=== PATIENT | female | born 1960 | race Caucasian/White ===

== ENCOUNTER 2018-11-14 16:54 | Inpatient (IN) | payer OTHER ==
[~2018-11-14] VITALS: Ht 157.5 cm; Wt 50.3 kg
--- NOTE | 2018-11-14 17:06 | NUR ---
PT BIBSELF FOR L SIDED NUMBNESS/WEAKNESS; PT AAOX4, PT ON MONITOR, VSS, NAD NOTED, PENDING MD CAMPO
--- NOTE | 2018-11-14 17:10 | NUR ---
CODE STROKE CALLED
--- NOTE | 2018-11-14 17:11 | NUR ---
PT TO CT
--- NOTE | 2018-11-14 17:15 | NUR ---
CALLED TELESTROKE AT [phone] ALANA WILL CALL US BACK WITH NEUROLOGIST
[2018-11-14] MEDS ORDERED: IOHEXOL-350 100 ML VIAL IV ONE (17:16)
[2018-11-14] MEDS ORDERED: IV NS 0.9% 250 ML IV ONE (17:16)
[2018-11-14] MEDS ORDERED: CT SWABBABLE VALVE TRANS SET 1 EA INFUS.SET MC ONE (17:16)
[2018-11-14 17:25] LABS: BASOPHILS # (AUTO) 0.1 /CMM (0.0-0.2); BASOPHILS % (AUTO) 1.5 % (0.0-2.0); EOSINOPHILS % (AUTO) 1.8 % (0.0-6.0); HEMATOCRIT 29 % (33-45); HEMOGLOBIN 9.6 g/dL (11.5-14.8); LYMPHOCYTES # (AUTO) 1.9 /CMM (0.8-4.8); LYMPHOCYTES % (AUTO) 43.6 % (20.0-44.0); MEAN CORPUSCULAR HGB CONC 33 g/dl (31.0-36.0); MEAN CORPUSCULAR VOLUME 90 fL (82-100); MONOCYTES # (AUTO) 0.4 /CMM (0.1-1.30); MONOCYTES % (AUTO) 9.7 % (2.0-12.0); NEUTROPHILS # (AUTO) 1.9 /CMM (1.8-8.9); NEUTROPHILS % (AUTO) 43.4 % (43.0-81.0); PLATELET COUNT (AUTO) 330 /CMM (150-450); RED BLOOD CELL COUNT(AUTO) 3.25 MIL/uL (4.0-5.2); WHITE BLOOD COUNT (AUTO) 4.3 K/uL (4.3-11.0)
[2018-11-14 17:33] LABS: CALCIUM, SERUM 8.9 mg/dL (8.5-10.1); CARBON DIOXIDE 25 mmol/L (21-32); CHLORIDE 103 mmol/L (98-107); CREATININE 0.9 mg/dL (0.6-1.3); GLUCOSE 96 mg/dL (74-106); POTASSIUM 4.4 mmol/L (3.5-5.1); SODIUM SERUM 134 mmol/L (136-145); UREA NITROGEN, BLOOD 19 mg/dL (7-18)
[2018-11-14 17:40] LABS: ALANINE AMINOTRANSFERASE 23 U/L (12-78); ALBUMIN 3.3 g/dL (3.4-5.0); ALKALINE PHOSPHATASE 110 U/L (46-116); ASPARTATE AMINOTRANSFERASE 14 U/L (15-37); BILIRUBIN,TOTAL 0.2 mg/dL (0.2-1.0); TOTAL PROTEIN, SERUM 6.8 g/dL (6.4-8.2)
[2018-11-14] MEDS ORDERED: ONDANSETRON HCL/PF 4 MG/2 ML VIAL ONE (17:58)
[2018-11-14] MEDS ORDERED: MORPHINE SULFATE INJ 4 MG/ML DISP.SYRIN ONE ×2 (17:58→20:28)
[2018-11-14] MEDS ORDERED: MORPHINE SULFATE INJ 10 MG/ML DISP.SYRIN IV ONE (18:00)
[2018-11-14] MEDS ORDERED: ONDANSETRON HCL/PF - ER 4 MG/2 ML VIAL IV ONE (18:00)
[2018-11-14 18:06] LABS: CHOLESTEROL 213 mg/dL (<200); HDL CHOLESTEROL 74 mg/dL (40-60); LDL 128 mg/dL (0-99); TRIGLYCERIDES 109 mg/dL (30-150)
[2018-11-14] MEDS ORDERED: ASPIRIN 325 MG TABLET PO ONE (19:00)
[2018-11-14] MEDS ORDERED: POTA20TA83 PO (20:27)
[2018-11-14] MEDS ORDERED: FURO20TA4 PO (20:27)
[2018-11-14] MEDS ORDERED: ATOR80TA PO (20:27)
[2018-11-14] MEDS ORDERED: LISI-603 PO (20:27)
[2018-11-14] MEDS ORDERED: MORPHINE SULFATE INJ 4 MG/ML DISP.SYRIN IV PRN (20:30)
--- NOTE | 2018-11-14 20:38 | NUR ---
MORPHINE 4MG IVP GIVEN AT 2030 L HAND 22G. UNABLE TO ADMINISTER THROUGH EMAR.
--- NOTE | 2018-11-14 20:39 | NUR ---
REPORT GIVEN TO DARBY SOOD FOR [facility]; PT WILL BE TRANSPORTED TO 3RD FLOOR VIA [facility] PROTOCOL
[2018-11-14 21:00] VITALS: BP 105/64
[2018-11-14] MEDS ORDERED: INSULIN REGULAR, HUMAN 100 UNIT/ML 3 ML VIAL SQ PRN (21:00)
[2018-11-14] MEDS ORDERED: DEXTROSE 50%-WATER 50 ML DISP.SYRIN IV PRN (21:00)
--- NOTE | 2018-11-14 21:00 | NUR ---
SPORTS MANAGEMENT PROFESSOR NOTE: RECEIVED PATIENT FROM ER, NO ACUTE DISTRESS NOTED. BREATHING EVEN AND UNLABORED, NO SOB NOTED. IV TO LEFT HAND IN PLACE. SWELLING TO RIGHT HAND NOTED, TO KEEP WITH ICE AND ELEVATED. STROKE ASSESSMENT COMPLETED. ORIENTED PATIENT TO ROOM AND USE OF CALL LIGHT. TELE READING SR 75. BED LOCKED AND IN LOWEST POSITION, CALL LIGHT IN REACH, WILL CONTINUE TO MONITOR.
--- NOTE | 2018-11-14 21:15 | NUR ---
BLUNGER NOTE: PATIENT WITHOUT ADMIT ORDER AND HOME MEDICATIONS TO BE RECONCILED. CONTACTED TRAVEL COTA MD AND GOT ORDER FOR ADMIT ORDER TO TELE, AND TO CONTINUE ALL HOME MEDICATIONS. ALSO CLARIFIED BLOOD SUGAR CHECK FREQUENCY AND NEED FOR SLIDING SCALE. RECEIVE ORDERS FOR ACHS BLOOD SUGAR CHECK WITH MILD SLIDING SCALE. ORDERS NOTED AND CARRIED OUT.
[2018-11-14] MEDS: ATORVASTATIN 40 MG TABLET PO SCH (21:41)
[2018-11-14] MEDS: BLOOD SUGAR DIAGNOSTIC 1 EACH STRIP IN SCH (21:41)
[2018-11-14] MEDS: FUROSEMIDE 20 MG TABLET PO SCH (21:41)
[2018-11-14] MEDS ORDERED: BLOOD SUGAR DIAGNOSTIC 1 EACH STRIP IN SCH (22:00)
--- NOTE | 2018-11-14 23:30 | NUR ---
RADIO MAINTAINER NOTE: PATIENT COMPLAINS OF PAIN TO RIGHT HAND, BUT PATIENT DOES NOT HAVE ANY PAIN MEDICATIONS ORDERED. CONTACTED FUND ACCOUNTING MANAGER MD AND RECEIVED ORDERS FOR MORPHINE 2MG IV EVERY 4 HOURS NEEDED. ORDER NOTED AND CARRIED OUT. PHARMACY TO VERIFY MEDICATION. WILL CONTINUE TO MONITOR.
[2018-11-15] VITALS: BP 87/49
[2018-11-15] MEDS ORDERED: BLOOD SUGAR DIAGNOSTIC 1 EACH STRIP IN SCH
[2018-11-15] MEDS: MORPHINE SULFATE INJ 2 MG/ML DISP.SYRIN IV PRN ×2 (01:33→20:41)
--- NOTE | 2018-11-15 01:35 | NUR ---
CULINARY WORKER NOTE: PATIENT COMPLAINS OF PAINT TO RIGHT HAND 8/10, MORPHINE 2MG IV GIVEN PER MD ORDER. WILL CONTINUE TO MONITOR.
[2018-11-15 04:00] VITALS: BP 96/47
--- NOTE | 2018-11-15 06:25 | NUR ---
SURGICAL GARMENT ASSEMBLY SUPERVISOR NOTE: PATIENT RESTING IN BED, NO ACUTE DISTRESS NOTED. BREATHING EVEN AND UNLABORED, NO SOB NOTED. IV TO LEFT HAND IN PLACE. TELE READING SR 67. BLOOD SUGAR LEVEL 97MG/DL, NO INSULIN NEEDED PER SLIDING SCALE. NO S/S OF HYPER/HYPOGLYCEMIA NOTED. BED LOCKED AND IN LOWEST POSITION, CALL LIGHT IN REACH, WILL ENDORSE TO DAY NURSE TO CONTINUE WITH PLAN OF CARE.
[2018-11-15] MEDS: BLOOD SUGAR DIAGNOSTIC 1 EACH STRIP IN SCH ×4 (06:34→21:26)
[2018-11-15 06:39] LABS: BASOPHILS # (AUTO) 0.1 /CMM (0.0-0.2); BASOPHILS % (AUTO) 1.4 % (0.0-2.0); EOSINOPHILS % (AUTO) 3.8 % (0.0-6.0); HEMATOCRIT 30 % (33-45); LYMPHOCYTES # (AUTO) 2.1 /CMM (0.8-4.8); LYMPHOCYTES % (AUTO) 53.5 % (20.0-44.0); MEAN CORPUSCULAR HGB CONC 34 g/dl (31.0-36.0); MEAN CORPUSCULAR VOLUME 89 fL (82-100); MONOCYTES # (AUTO) 0.4 /CMM (0.1-1.30); MONOCYTES % (AUTO) 9.4 % (2.0-12.0); NEUTROPHILS # (AUTO) 1.3 /CMM (1.8-8.9); NEUTROPHILS % (AUTO) 31.9 % (43.0-81.0); PLATELET COUNT (AUTO) 359 /CMM (150-450); RED BLOOD CELL COUNT(AUTO) 3.34 MIL/uL (4.0-5.2); WHITE BLOOD COUNT (AUTO) 3.9 K/uL (4.3-11.0)
[2018-11-15 07:02] LABS: CALCIUM, SERUM 9.2 mg/dL (8.5-10.1); CREATININE 1.1 mg/dL (0.6-1.3); POTASSIUM 3.9 mmol/L (3.5-5.1)
--- NOTE | 2018-11-15 07:34 | NUR ---
TELE/RN OPENING NOTE PATIENT IN BED IN STABLE CONDITION. A/O X 4. NO SIGNS OF ACUTE DISTRESS. COMPLAIN OF PAIN TO RIGHT HAND RATED 8/10, NOTED WITH SWELLING, ENCOURAGED PATIENT TO KEEP THE HAND RAISED POSSIBLE. WILL ADMINISTER PRN MEDICATIONS ORDERED. ON TELE MONITOR NOTED WITH SR 75. ALSO SEEN BY DR TAYLER THAYER WITH ORDER FOR MRI BRAIN WO CONTRAST. PAGED BARB RADIOLOGIST AT THIS TIME, WILL FOLLOW UP TO MAKE HIM AWARE. ALL NEEDS ATTENDED TO. CALL LIGHT WITHIN REACH. WILL CONTINUE TO MONITOR TO ENSURE SAFETY.
[2018-11-15 08:00] VITALS: BP 98/52
--- NOTE | 2018-11-15 08:46 | NUR ---
TELE/RN SPOKE WITH FLORESITA Ulloa AND NOTIFIED PATIENT BP NOTED 86/70, HR 72. NO SIGNS OF ACUTE DISTRESS. NO COMPLAIN OF DIZZINESS AND ALSO NOTIFIED NO IV FLUIDS AT THIS TIME. PER DR. DOSS WILL REVIEW CHART AND PUT ORDERS NEEDED.
[2018-11-15] MEDS: FUROSEMIDE 20 MG TABLET PO SCH (09:00)
[2018-11-15] MEDS: POTASSIUM CHLORIDE 20 MEQ TAB.PRT.SR PO SCH (09:00)
[2018-11-15] MEDS: LISINOPRIL (20MG) 20 MG TABLET PO SCH (09:00)
[2018-11-15] MEDS ORDERED: IV NS 0.9% 500 ML IV ONE (09:00)
--- NOTE | 2018-11-15 10:50 | NUR ---
TELE/RN S/P IV NS 500ML BOLUS DUE TO LOW BP, BP NOTED 82/52. DR. SELAM Ulloa NOTIFIED. AWAITING FOR NEW ORDERS.
--- NOTE | 2018-11-15 10:56 | NUR ---
MS/RN RECHECKED BP 97/56.
--- NOTE | 2018-11-15 11:26 | NUR ---
WOUND CARE CONSULT: PT SEEN FOR RT HAND SWELLING,PRESENT ON ADMISSION. PT STATES HAS PAIN IN RT HAND AND FOREARM AND THAT IV INFILTRATED WHEN SHE WAS HAVING PROCEDURE. RT HAND NOTED TO HAVE SOME SWELLING. ELEVATED ON 2 PILLOWS. PHARMACIST NOTIFIED. RECOMMEND PLASTIC SURGICAL CONSULT. PT REFUSED FULL SKIN ASSESSMENT. WILL SEE PRN.
--- NOTE | 2018-11-15 12:50 | NUR ---
MS/RN SPOKE WITH DR DOSS AND NOTIFIED PATIENT HAS MRI SCHEDULE AND IS REQUESTING FOR ANTI ANXIETY PRIOR TO MRI SECONDARY TO HER FEELING ANXIOUS BP 106/52, 67. PER DR DOSS XANAX 0.5MG PO X 1 NOW. PATIENT NOTIFIED.
[2018-11-15] MEDS ORDERED: ALPRAZOLAM 1 MG TABLET PO ONE (13:00)
--- NOTE | 2018-11-15 13:21 | NUR ---
MS/RN PATIENT REFUSED MRI BRAIN WO CONTRAST PER PATIENT SHE FEELS ANXIOUS. PRIOR MRI XANAX 0.5MFG PO ADMINISTERED AND DURING MRI PATIENT STARTED YELLING STATING "TAKE ME OUT", AND REFUSED MRI. DR TRINIDAD NEUROLOGIST NOTIFIED.
[2018-11-15 16:00] VITALS: BP 90/50
--- NOTE | 2018-11-15 18:26 | NUR ---
MS/RN SPOKE WITH DR DOSS AND NOTIFIED PATIENT C/O PAIN TO RIGHT HAND, RATED 8/10. SECONDARY TO IV SITE INFILTRATION, CURRENTLY ON MORPHINE 2MG IV BUT NOTED WITH LOW BP AND RECOMMENDED TORADOL IV P X [address] SELAM CHAUDHARI TO GIVE TORADOL 15MG IV PUSH X 1 ONLY
--- NOTE | 2018-11-15 18:28 | NUR ---
MS/RN CLOSING NOTE PATIENT IN BED IN STABLE CONDITION. A/O X 4. NO SIGNS OF ACUTE DISTRESS. COMPLAIN OF PAIN TO RIGHT HAND RATED 8/10. WILL GIVE TORADOL 15MG IV ORDERED FOR PAIN. ALL NEEDS ATTENDED TO AT THIS TIME. CALL LIGHT WITHIN REACH. WILL ENDORSE TO NEXT SHIFT FOR CONTINUITY OF CARE.
[2018-11-15] MEDS ORDERED: KETOROLAC TROMETHAMINE INJ 30 MG/ML VIAL IV ONE (18:30)
--- NOTE | 2018-11-15 19:30 | NUR ---
MS RN NOTE: PATIENT RESTING IN BED, NO ACUTE DISTRESS NOTED. BREATHING EVEN AND UNLABORED, NO SOB NOTED. IV TO LEFT HAND IN PLACE. NO S/S OF HYPER/HYPOGLYCEMIA NOTED. BED LOCKED AND IN LOWEST POSITION, CALL LIGHT IN REACH, WILL CONTINUE TO MONITOR.
[2018-11-15 20:00] VITALS: BP 123/67
--- NOTE | 2018-11-15 20:45 | NUR ---
MS RN NOTE: PATIENT COMPLAINS OF PAINT TO RIGHT HAND 8/10, MORPHINE 2MG IV GIVEN PER MD ORDER. WILL CONTINUE TO MONITOR.
[2018-11-15] MEDS: ATORVASTATIN 40 MG TABLET PO SCH (21:26)
--- NOTE | 2018-11-15 22:15 | NUR ---
MS RN NOTE: PATIENT REFUSED BLOOD SUGAR CHECK, PATIENT IS NOT A DIABETIC AND EXPLAINED RISK AND BENEFITS DUE TO R/O CVA DIAGNOSIS, BUT PATIENT CONTINUES TO REFUSE BLOOD SUGAR CHECK. NO S/S OF HYPER/HYPOGLYCEMIA NOTED. WILL CONTINUE TO MONITOR.
[2018-11-16] MEDS: MORPHINE SULFATE INJ 2 MG/ML DISP.SYRIN IV PRN ×4 (02:17→20:30)
--- NOTE | 2018-11-16 02:20 | NUR ---
MS RN NOTE: PATIENT COMPLAINS OF PAINT TO RIGHT HAND 8/10, MORPHINE 2MG IV GIVEN PER MD ORDER. WILL CONTINUE TO MONITOR.
--- NOTE | 2018-11-16 06:15 | NUR ---
MS RN NOTE: PATIENT RESTING IN BED, NO ACUTE DISTRESS NOTED. BREATHING EVEN AND UNLABORED, NO SOB NOTED. IV TO LEFT HAND IN PLACE. PATIENT REFUSES BLOOD SUGAR CHECK, NO S/S OF HYPER/HYPOGLYCEMIA NOTED. BED LOCKED AND IN LOWEST POSITION, CALL LIGHT IN REACH, WILL ENDORSE TO DAY NURSE TO CONTINUE WITH PLAN OF CARE.
[2018-11-16] MEDS: BLOOD SUGAR DIAGNOSTIC 1 EACH STRIP IN SCH ×4 (06:31→22:11)
--- NOTE | 2018-11-16 07:50 | NUR ---
M/S RN NOTES PATIENT ALERT AND ORIENTED X 4. PATIENT WITH NO ACUTE DISTRESS AT THIS TIME. PATIENT HAS IV SALINE LOCK ON LEFT HAND #22G INTACT AND PATENT. BED LOW AND LOCKED. SAFETY PRECAUTIONS MAINTAINED. CALL LIGHT WITHIN REACH.
[2018-11-16 07:59] LABS: BASOPHILS % (AUTO) 1.1 % (0.0-2.0); EOSINOPHILS % (AUTO) 3.2 % (0.0-6.0); HEMATOCRIT 30 % (33-45); HEMOGLOBIN 9.6 g/dL (11.5-14.8); LYMPHOCYTES # (AUTO) 1.6 /CMM (0.8-4.8); LYMPHOCYTES % (AUTO) 35.5 % (20.0-44.0); MEAN CORPUSCULAR HGB CONC 33 g/dl (31.0-36.0); MEAN CORPUSCULAR VOLUME 89 fL (82-100); MONOCYTES # (AUTO) 0.4 /CMM (0.1-1.30); MONOCYTES % (AUTO) 9.7 % (2.0-12.0); NEUTROPHILS # (AUTO) 2.3 /CMM (1.8-8.9); NEUTROPHILS % (AUTO) 50.5 % (43.0-81.0); PLATELET COUNT (AUTO) 281 /CMM (150-450); RED BLOOD CELL COUNT(AUTO) 3.32 MIL/uL (4.0-5.2); WHITE BLOOD COUNT (AUTO) 4.5 K/uL (4.3-11.0)
[2018-11-16 08:00] VITALS: BP 90/52
[2018-11-16 08:13] LABS: CALCIUM, SERUM 9.1 mg/dL (8.5-10.1); CREATININE 1.1 mg/dL (0.6-1.3); MAGNESIUM 2.1 mg/dL (1.8-2.4); PHOSPHORUS 3.7 mg/dL (2.5-4.9)
[2018-11-16] MEDS ORDERED: LORAZEPAM INJ 2 MG/ML VIAL IV ONE ×2 (08:30→11:30)
[2018-11-16] MEDS: FUROSEMIDE 20 MG TABLET PO SCH (09:00)
[2018-11-16] MEDS: POTASSIUM CHLORIDE 20 MEQ TAB.PRT.SR PO SCH (09:00)
[2018-11-16] MEDS: LISINOPRIL (20MG) 20 MG TABLET PO SCH (09:00)
[2018-11-16 16:00] VITALS: BP 120/60
--- NOTE | 2018-11-16 17:42 | NUR ---
M/S RN NOTES PATIENT STATED THAT SHE LOST HER BALANCE WHEN SHE WAS IN THE BATHROOM. PATIENT IS AMBULATORY WITH STEADY GAIT. PATIENT INITIALLY CLAIMED THAT SHE HIT THE FRONT LEFT SIDE OF HER HEAD AT 1730. PATIENT STATED AGAIN THAT SHE DID NOT HIT HER HEAD AND INSTEAD HIT HER LEFT SHOULDER. SHE DENIES PAIN AT THIS TIME. PATIENT HAS NO COMPLAINTS OF A HEADACHE. SKIN ASSESSMENT DONE. NO REDNESS, NO SWELLING, NO BRUISING NOTED. FALL PRECAUTIONS MAINTAINED. WILL CONTINUE TO MONITOR. SELAM HARGROVE DNP NOTIFIED.
--- NOTE | 2018-11-16 19:05 | NUR ---
MS/RN CLOSING NOTE RECEIVED PT IN BED AND AWAKE IN STABLE CONDITION. PT A/O X 4 AND ABLE TO MAKE NEEDS KNOWN. RESPIRATIONS EVEN AND UNLABORED WITH NO S/S OF ACUTE DISTRESS OR SOB NOTED. NO COMPLAINTS OF PAIN AT THIS TIME. CALL LIGHT WITHIN REACH. WILL CONTINUE TO MONITOR. Addendum: 11/17/18 at 0221 by KARLO ASHLEY RN MS RN OPENING NOTE
[2018-11-16 20:00] VITALS: BP 112/71
[2018-11-16] MEDS: ATORVASTATIN 40 MG TABLET PO SCH (22:11)
[2018-11-17] MEDS: MORPHINE SULFATE INJ 2 MG/ML DISP.SYRIN IV PRN ×4 (00:26→14:03)
[2018-11-17 06:00] VITALS: BP 117/67
[2018-11-17] MEDS: BLOOD SUGAR DIAGNOSTIC 1 EACH STRIP IN SCH ×2 (06:36→12:00)
--- NOTE | 2018-11-17 06:45 | NUR ---
PATIENT ASLEEP; EASILY AROUSABLE. RESPIRATION EVEN. NO SIGNS OF PAIN NOTED. NO SYMPTOMS OF HYPER/HYPOGLYCEMIA. NEEDS ATTENDED. KEPT CLEAN AND DRY. SAFETY PRECAUTIONS AND COMFORT MEASURES IN PLACE. WILL GIVE REPORT TO DAY SHIFT FOR CONTINUITY OF CARE.
[2018-11-17 08:00] VITALS: BP 108/62
[2018-11-17] MEDS: POTASSIUM CHLORIDE 20 MEQ TAB.PRT.SR PO SCH (08:21)
[2018-11-17] MEDS: LISINOPRIL (20MG) 20 MG TABLET PO SCH (08:22)
[2018-11-17] MEDS: FUROSEMIDE 20 MG TABLET PO SCH (08:22)
[2018-11-17] MEDS ORDERED: LORAZEPAM 1 MG TABLET PO ONE (13:30)
[2018-11-17 16:39] VITALS: BP 129/72
--- NOTE | 2018-11-17 16:40 | NUR ---
MS/RN PT DISCHARGED HOME. PRESCRIPTIONS/EXIT CARE PROVIDED. PROPERTY RETURNED.PT IS AMBULATORY,A/O X4. VSS. NO C/O PAIN OR AGITATION NOTED ON DISCHARGE. ACCOMPANIED TO THE MAIN ENTRANCE. PT ARRANGING HER OWN TRANSPORTATION. PT WILL FOLLOW UP WITH HER PRIMARY CARE PHYSICIAN.
== END 2018-11-17 16:45 | disposition home or self-care (01) | DRG 47 ==
LOC: ER 17:16 → TELE 20:11 → MED 11-15 10:50 → MEDSG2 11-17 05:22
PROVIDERS: ADMIT Student in an Organized Health Care Education/Training Program; ATTEND Hospitalist
DX: G45.9 Transient cerebral ischemic attack, unspecified (principal); T80.818A Extravasation of other vesicant agent, initial encounter; E04.1 Nontoxic single thyroid nodule; E78.5 Hyperlipidemia, unspecified; I10 Essential (primary) hypertension; Z86.73 Personal history of transient ischemic attack (TIA), and cerebral infarction without residual deficits; Z88.0 Allergy status to penicillin; Z88.2 Allergy status to sulfonamides; Z88.5 Allergy status to narcotic agent; Z98.890 Other specified postprocedural states; F40.240 Claustrophobia; F41.9 Anxiety disorder, unspecified; Y84.8 Other medical procedures as the cause of abnormal reaction of the patient, or of later complication, without mention of misadventure at the time of the procedure; Y92.89 Other specified places as the place of occurrence of the external cause
CPT/HCPCS: 36415; 70450-TC; 70496-TC; 70498-TC; 70551-TC; 71045-TC; 80048-TC; 80061-TC; 80076-TC; 80305; 82962-TC; 83735-TC; 84100-TC; 84439-TC; 84443-TC; 84484-TC; 85025-TC; 85730-TC; 87081-TC; 92611-TC; 93307-TC; 93880-TC; G0378; J1815; J1885; J2060; J2270; J2405; J7040; J7050; Q9967

== ENCOUNTER 2022-09-18 16:27 | Emergency (ER) | payer MEDICAID, OTHER ==
[~2022-09-18] VITALS: Ht 157.5 cm; Wt 52.2 kg
[~2022-09-18 16:27] MED LIST: ATOR80TA PO; FURO20TA4 PO; LISI20TA30 PO; POTA20TA83 PO
[2022-09-18] MEDS ORDERED: IV NS 0.9% 1,000 ML BAG IV ONE (17:00)
--- NOTE | 2022-09-18 17:00 | NUR ---
TECH AT BEDSIDE FOR EKG
[2022-09-18] MEDS ORDERED: TRAZ-252 PO (17:28)
[2022-09-18] MEDS ORDERED: HYDR25TA4 PO (17:28)
[2022-09-18] MEDS ORDERED: LEVE100023 PO (17:28)
[2022-09-18] MEDS ORDERED: ESCI10TA PO (17:28)
[2022-09-18] MEDS ORDERED: CYCL5TAB PO (17:28)
[2022-09-18] MEDS ORDERED: ASPIRIN 325 MG TABLET PO ONE (17:30)
--- NOTE | 2022-09-18 17:43 | NUR ---
MOVE SHEET SUBMITTED.
[2022-09-18 17:49] LABS: BASOPHILS % (AUTO) 0.7 % (0.0-2.0); HEMATOCRIT 36 % (33-45); HEMOGLOBIN 11.8 g/dL (11.5-14.8); LYMPHOCYTES # (AUTO) 1.3 K/uL (0.8-4.8); LYMPHOCYTES % (AUTO) 23.4 % (20.0-44.0); MEAN CORPUSCULAR HGB CONC 32 g/dl (31.0-36.0); MEAN CORPUSCULAR VOLUME 94 fL (82-100); MONOCYTES # (AUTO) 0.6 K/uL (0.1-1.30); MONOCYTES % (AUTO) 10.8 % (2.0-12.0); NEUTROPHILS # (AUTO) 3.4 K/uL (1.8-8.9); NEUTROPHILS % (AUTO) 64.1 % (43.0-81.0); PLATELET COUNT (AUTO) 405 K/uL (150-450); RED BLOOD CELL COUNT(AUTO) 3.86 MIL/uL (4.0-5.2); WHITE BLOOD COUNT (AUTO) 5.4 K/uL (4.3-11.0)
[2022-09-18] MEDS ORDERED: LORAZEPAM 1 MG TABLET PO ONE (18:00)
[2022-09-18] MEDS ORDERED: LORAZEPAM 1 MG TABLET ONE (18:05)
--- NOTE | 2022-09-18 18:18 | NUR ---
Md saw patient at bedside. new orders placed
--- NOTE | 2022-09-18 18:38 | NUR ---
RAPID COVID SWAB DONE AND SENT TO LAB
[2022-09-18 18:52] LABS: CALCIUM, SERUM 9.5 mg/dL (8.5-10.1); CARBON DIOXIDE 29 mmol/L (21-32); CHLORIDE 92 mmol/L (98-107); CREATININE 1.5 mg/dL (0.6-1.3); GLUCOSE 114 mg/dL (74-106); POTASSIUM 4.3 mmol/L (3.5-5.1); SODIUM SERUM 130 mmol/L (136-145); UREA NITROGEN, BLOOD 22 mg/dL (7-18)
[2022-09-18 19:04] LABS: ALANINE AMINOTRANSFERASE 20 U/L (12-78); ALBUMIN 3.4 g/dL (3.4-5.0); ALKALINE PHOSPHATASE 74 U/L (46-116); ASPARTATE AMINOTRANSFERASE 21 U/L (15-37); BILIRUBIN,DIRECT 0.1 mg/dL (0.0-0.2); BILIRUBIN,TOTAL 0.3 mg/dL (0.2-1.0); TOTAL PROTEIN, SERUM 7.5 g/dL (6.4-8.2)
--- NOTE | 2022-09-18 19:33 | NUR ---
endorsement given to Angelina SOOD for [facility]
--- NOTE | 2022-09-18 19:45 | NUR ---
RECEIVED PATIENT AAOX4. ABLE TO MAKE NEEDS KNOWN. CAME WITH CC OF [facility]. RECEIVED PT WITH IV HILARIO ON RIGHT HAND G22. ATTACHED TO MONITOR. VITALS CHECKED.
--- NOTE | 2022-09-18 21:20 | NUR ---
SEEN BY KATJA DALTON AT BEDSIDE
[2022-09-18] MEDS ORDERED: MORPHINE SULFATE INJ 2 MG/ML DISP.SYRIN IV PRN (22:30)
[2022-09-18] MEDS ORDERED: MAG HYDROX/AL HYDROX/SIMETH 30 ML UDC PO PRN (22:30)
[2022-09-18] MEDS ORDERED: ACETAMINOPHEN 325 MG TABLET PO PRN (22:30)
[2022-09-18] MEDS ORDERED: MAGNESIUM HYDROXIDE 30 ML UDC PO PRN (22:30)
[2022-09-18] MEDS ORDERED: Z GUARD REMEDY 4 OZ OINT TP PRN (22:30)
[2022-09-18] MEDS ORDERED: IV NS 0.9% 1,000 ML IV PRN (22:30)
[2022-09-18] MEDS ORDERED: ONDANSETRON HCL/PF 4 MG/2 ML VIAL IVP PRN (22:30)
[2022-09-18] MEDS ORDERED: HYDROCODONE/APAP 5/325MG TABLET PO PRN (22:30)
--- NOTE | 2022-09-18 22:40 | NUR ---
received a call from Mustapha, Motorcoach Operator at [facility]. Pt is going to be transfered. Covid result faxed.
--- NOTE | 2022-09-18 23:00 | NUR ---
CAME BACK FROM CT DEPT
--- NOTE | 2022-09-18 23:11 | NUR ---
PER SELENE OF [facility], PATIENT IS ACCEPTED BY DR SCOTT. GIVEN TELE BED ROOM 522, GIVE REPORT TO [phone]. CALL SELENE FOR ETA AT [phone].
--- NOTE | 2022-09-18 23:20 | NUR ---
RECEIVED AUTH #[id number] FOR TRANSPORT.
--- NOTE | 2022-09-18 23:22 | NUR ---
FACESHEET FAXED TO [facility] AT [phone].
--- NOTE | 2022-09-18 23:31 | NUR ---
[facility] CALLED FOR TRANSPORT, ETA 2 HOURS.
--- NOTE | 2022-09-18 23:46 | NUR ---
REPORT GIVEN TO INDIGO DOMÍNGUEZ OF [facility]. SELENE OF [facility] IS ALSO INFORMED ABOUT THE ETA OF [facility] WHICH IS BETWEEN 2-3AM
--- NOTE | 2022-09-19 00:09 | NUR ---
PATIENT BEING UPDATED ABOUT TRANSFER STATUS
--- NOTE | 2022-09-19 01:33 | NUR ---
PICKED UP BY [facility] IN STABLE CONDITION GOING TO [facility]
--- NOTE | 2022-09-19 01:45 | NUR ---
Patient discharged to home in stable condition. Written and verbal after care instructions given. Patient verbalizes understanding of instruction.
[2022-09-19 03:16] VITALS: BP 123/51
[2022-09-19] MEDS ORDERED: PANTOPRAZOLE 40 MG TABLET.DR PO SCH (07:30)
[2022-09-19] MEDS ORDERED: ESCITALOPRAM OXALATE (10 MG) 10 MG TABLET PO SCH (09:00)
[2022-09-19] MEDS ORDERED: LEVETIRACETAM (250 MG) 250 MG TABLET PO SCH (09:00)
[2022-09-19] MEDS ORDERED: CYCLOBENZAPRINE 10 MG TABLET PO SCH (09:00)
[2022-09-19] MEDS ORDERED: LISINOPRIL (20MG) 20 MG TABLET PO SCH (09:00)
[2022-09-19] MEDS ORDERED: TRAZODONE 50 MG TABLET PO SCH (18:00)
[2022-09-19] MEDS ORDERED: ATORVASTATIN 40 MG TABLET PO SCH (22:00)
== END 2022-09-19 03:16 | disposition short-term general hospital (02) ==
LOC: ER 16:32
DX: R55 Syncope and collapse (principal); I69.354 Hemiplegia and hemiparesis following cerebral infarction affecting left non-dominant side; E86.0 Dehydration; N17.0 Acute kidney failure with tubular necrosis; G40.909 Epilepsy, unspecified, not intractable, without status epilepticus; Z79.899 Other long term (current) drug therapy; E78.5 Hyperlipidemia, unspecified; I10 Essential (primary) hypertension; Z87.820 Personal history of traumatic brain injury; Z20.822 Contact with and (suspected) exposure to COVID-19; Z88.6 Allergy status to analgesic agent; Z88.1 Allergy status to other antibiotic agents; Z88.0 Allergy status to penicillin; Z88.2 Allergy status to sulfonamides; I44.7 Left bundle-branch block, unspecified
CPT/HCPCS: 99291; 96360; 70450; 87426; 93005; 71045; 85025; 80048; 80076; 36415; 84484; 83880; A4217; C9803; J7030